=== PATIENT | male | born 1985 | race Caucasian/White ===

== ENCOUNTER 2018-12-02 14:07 | Emergency (ER) | payer SELFPAY ==
[2018-12-02 14:12] VITALS: BP 159/113; PULSE 82; RESP 15; TEMP 37.2; O2SAT 97; BMI 47.2
--- NOTE | 2018-12-02 17:27 | ED.URI ---
HPI - URI/Sore Throat <Elaine Vasquez PA-C - Last Filed: 12/02/18 21:46> General Chief Complaint: Upper Respiratory Symptoms Stated Complaint: Sinus infect./low grade fever/int'l travel Time Seen by Provider: 12/02/18 17:27 Source: patient Mode of arrival: ambulatory Limitations: no limitations History of Present Illness HPI Narrative: This generally healthy 33-year-old comes in due to concern for sinus infection. He traveled around [place] returned home 2 weeks ago. Past prior to returning home, he developed sore throat, sinus and ear congestion with postnasal drip and some cough and fever up to 101. He states that he was given a homeopathic remedy at a pharmacy in [place] which was not helpful. He tried Benadryl and Sudafed here without relief of symptoms. He states that he feels like there is burning in his sinuses, continues to feel hot and cold and states he is having fever intermittently though he has not checked a temperature in the last couple of days. He states he feels like his cough is due to postnasal drip, states he has discolored nasal drainage. he denies chest congestion, chest pain, wheeze or dyspnea. He states he is generally very healthy with no chronic medical conditions, no history of surgeries, never a smoker Related Data Previous Rx's Medication Instructions Recorded amoxicillin-pot clavulanate 1 tab PO Q12H #20 tab 12/02/18 [Augmentin] Allergies Allergy/AdvReac Type Severity Reaction Status Date / Time aspirin Allergy Verified 12/02/18 14:12 ibuprofen Allergy Verified 12/02/18 14:12 Review of Systems <Elaine Vasquez PA-C - Last Filed: 12/02/18 21:46> Review of Systems ROS Unobtainable: All systems reviewed & are unremarkable except as noted in HPI and below PFSH <Elaine Vasquez PA-C - Last Filed: 12/02/18 21:46> Medical History (Updated 12/02/18 @ 21:43 by Elaine Vasquez PA-C) Rhabdomyolysis (Resolved) Social History Smoking Status: Never smoker Social History Smoking Status: Never smoker Exam <Elaine Vasquez PA-C - Last Filed: 12/02/18 21:46> Narrative Exam Narrative: GENERAL APPEARANCE: Patient sitting comfortably, in no distress. HEAD: Localized right maxillary tenderness EYES: PERRL, EOMI. EARS: Normal auditory canals, TMS intact with normal light reflexes. ORAL CAVITY: Normal oropharynx. THROAT: Clear. NECK/THYROID: Neck supple, full range of motion, no cervical lymphadenopathy. LUNGS: Clear to auscultation bilaterally, no cough on exam. HEART: RRR without murmur, nl S1, S2, no S3 or S4. DERMATOLOGIC: No exanthem Initial Vital Signs Initial Vital Signs: Vital Signs Temperature 98.9 F 12/02/18 14:12 Pulse Rate 82 12/02/18 14:12 Respiratory Rate 15 12/02/18 14:12 Blood Pressure 159/113 H 12/02/18 14:12 Pulse Oximetry 97 12/02/18 14:12 <DO Burt Ryan Last Filed: 12/03/18 07:41> Initial Vital Signs Initial Vital Signs: Vital Signs Temperature 98.9 F 12/02/18 14:12 Pulse Rate 82 12/02/18 14:12 Respiratory Rate 15 12/02/18 14:12 Blood Pressure 159/113 H 12/02/18 14:12 Pulse Oximetry 97 12/02/18 14:12 Course <Elaine Vasquez PA-C - Last Filed: 12/02/18 21:46> Additional Information: Advised patient passed majority of sinusitis is viral, however he has had persistent symptoms including fever, parent drainage, and now appears to be starting to have some localizing tenderness on exam. He does not have a primary care provider. Given a prescription for Augmentin to start if symptoms are persisting or worse over the next few days, otherwise he will not start this if improving. He is agreeable Vital Signs - 8 hr 12/02/18 14:12 12/02/18 17:28 Temperature 98.9 F Pulse Rate 82 86 Respiratory Rate 15 17 Blood Pressure 159/113 H Blood Pressure [Left Wrist] 153/104 H Pulse Oximetry 97 99 <DO Burt Ryan Last Filed: 12/03/18 07:41> Vital Signs - 8 hr 12/02/18 14:12 12/02/18 17:28 Temperature 98.9 F Pulse Rate 82 86 Respiratory Rate 15 17 Blood Pressure 159/113 H Blood Pressure [Left Wrist] 153/104 H Pulse Oximetry 97 99 Discharge Plan Departure Patient Disposition: Home Clinical Impression: Acute maxillary sinusitis Qualifiers: Recurrence: non-recurrent Qualified Code(s): J01.00 - Acute maxillary sinusitis, unspecified Discharge Date/Time: 12/02/18 18:08 Interventions: ED Discharge Assessment Last Done: 12/02/18 18:08 Instructions: DI for Sinusitis Activity Restrictions/Additional Instructions: As we talked about, the vast majority of the time, sinus infections are due to viruses and resolve on their own. Since you had a little bit of localized pain today when I examined, and you have had discolored drainage and fever, I have prescribed an antibiotic for you to fill if you have worsening symptoms over the next few days (i.e. If you have worsening pain in your right cheek, persistent fevers and discolored drainage, you should go ahead and start it, otherwise do not take the prescription). You may want to try pseudoephedrine again to help with the congestion and pressure (make sure you get that rather than phenylephprine). Remember that you should be seen as we talked about if you have acutely worsening comes, and you should also set up follow-up with a primary care provider if you are not getting better in the next couple of weeks Prescriptions: New amoxicillin-pot clavulanate [Augmentin] 875-125 mg tablet 1 tab PO Q12H Qty: 20 RF: 0 <Jazmine Prasad DO - Last Filed: 12/03/18 07:41> Cosign ED Attending Sushmaature Attestation: I was immediately available in the department for consultation. This documentation has been reviewed and I agree with assessment and plan. Supervised by Jazmine Prasad DO
[2018-12-02 17:28] VITALS: BP 153/104; PULSE 86; RESP 17; O2SAT 99
== END 2018-12-02 18:08 | disposition home or self-care (01) ==
PROVIDERS: Emergency Provider Internal Medicine
DX: J01.00 Acute maxillary sinusitis, unspecified (principal)
CPT/HCPCS: 99282; 99283

== ENCOUNTER 2023-05-25 13:33 | Emergency (ER) | payer OTHER, SELFPAY ==
[2023-05-25 13:51] VITALS: BP 176/94; PULSE 57; RESP 18; TEMP 37.5; O2SAT 98; BMI 47.2
[2023-05-25 14:23] LABS: Strep Grp A by PCR Rapid Negative (Negative)
--- NOTE | 2023-05-25 15:43 | DI.RAD.S_ITS ---
PROCEDURE: XR CHEST 2V INDICATIONS: SOB TECHNIQUE: 2 views of the chest were acquired. COMPARISON: None. FINDINGS: Surgical changes and devices: None. Lungs and pleura: Lungs are clear. No pleural effusions or pneumothorax. Mediastinum: Mediastinal contours are normal. Heart size is normal. Bones and chest wall: No suspicious bony abnormalities. Soft tissues appear unremarkable. IMPRESSION: No acute pulmonary process. Dictated by: Kadi Smith M.D. on 05/25/2023 at 16:29 Approved by: Kadi Smith M.D. on 05/25/2023 at 16:29
--- NOTE | 2023-05-25 15:46 | PC.NURSE ---
Addendum entered by Ruby Lucas R.N. 05/25/23 15:47: Disregard, wrong chart' Original Note: Called Dr. Booker's office. Dr. Booker will come to see pt @ [id number].
[2023-05-25 16:05] VITALS: BP 174/86; PULSE 57; RESP 16; O2SAT 95
--- NOTE | 2023-05-25 16:13 | ED.URI ---
HPI - URI/Sore Throat <Kim Peterson PA-C - Last Filed: 05/25/23 18:12> General Chief Complaint: Upper Respiratory Symptoms Stated Complaint: pain in throat/SOB/can't cough T-21/heart palp Time Seen by Provider: 05/25/23 15:23 Source: patient Mode of arrival: Ambulatory History of Present Illness HPI Narrative: Patient is a 38-year-old nonsmoker with a history of GERD, diabetes and hypertension who presents with 3 weeks of symptoms. It started with a sore throat but then progressed to a feeling of obstruction in his trachea. He has occasional productive cough. It has persisted and now he feels twinges in his left upper chest, in his heart. This morning he woke up with a severe headache which he attributes to the obstruction in his throat. He does have a history of GERD for which he takes omeprazole daily, reports this controls the symptoms. He snores and has large tonsils but has not had a sleep study or been diagnosed with ROSA and does not use a CPAP. He reports a remote history of asthma for which she has taken albuterol on occasion. He has a family history of cardiac before age 60. He was seen at urgent care in [place] yesterday and they suggested that his symptoms might be related to allergies, suggested a daily antihistamine. He presents here to the emergency department today because he feels something more significant is wrong and is requesting a can of his neck to assess for obstruction. Related Data Allergies Allergy/AdvReac Type Severity Reaction Status Date / Time aspirin Allergy Verified 12/02/18 14:12 ibuprofen Allergy Verified 12/02/18 14:12 Review of Systems <Kim Peterson PA-C - Last Filed: 05/25/23 18:12> Review of Systems ROS Unobtainable: All systems reviewed & are unremarkable except as noted in HPI and below Patient History <Kim Peterson PA-C - Last Filed: 05/25/23 18:12> Medical History Rhabdomyolysis Social History Smoking Status: Never smoker Smoking Status: Never smoker alcohol intake frequency: holidays/special occasions only Substance Use Type: does not use Exam <Kim Peterson PA-C - Last Filed: 05/25/23 18:12> Narrative Exam Narrative: GENERAL: 38 year old patient appears stated age. Well-developed patient, in no distress. NEURO: AOx3. HEAD: Atraumatic. Normocephalic. EYES: Pupils equal round and reactive. Extraocular motions intact. No scleral icterus. No injection or drainage. ENT: Nose without bleeding or purulent drainage. Throat with mild erythema, significant tonsillar hypertroph, no exudate. Airway patent. TMs clear and bulging bilaterally, left more than right. NECK: Trachea midline. Non tender CARDIOVASCULAR: Regular rate and rhythm without murmurs, gallops, or rubs. RESPIRATORY: Clear to auscultation. Breath sounds equal bilaterally. No wheezes, rales, or rhonchi. SKIN: No rash or erythema of visible areas Initial Vital Signs Initial Vital Signs: Vital Signs Temperature 99.5 F 05/25/23 13:51 Pulse Rate 57 L 05/25/23 13:51 Respiratory Rate 18 05/25/23 13:51 Blood Pressure 176/94 H 05/25/23 13:51 Pulse Oximetry 98 05/25/23 13:51 Oxygen Delivery Method Room Air 05/25/23 13:51 <Jason Rebolledo MD - Last Filed: 05/25/23 18:19> Initial Vital Signs Initial Vital Signs: Vital Signs Temperature 99.5 F 05/25/23 13:51 Pulse Rate 57 L 05/25/23 13:51 Respiratory Rate 18 05/25/23 13:51 Blood Pressure 176/94 H 05/25/23 13:51 Pulse Oximetry 98 05/25/23 13:51 Oxygen Delivery Method Room Air 05/25/23 13:51 Course <Kim Peterson PA-C - Last Filed: 05/25/23 18:12> Orders Ordered: ED Orders 05/25/23 14:00 Strep Grp A by PCR Rapid Stat 05/25/23 14:45 Throat Culture Stat 05/25/23 15:42 EKG-12 Lead Stat 05/25/23 15:43 XR chest 2V Stat 05/25/23 15:53 Comprehensive Metabolic Panel Stat Lipase Stat Troponin & CK Cardiac Panel Stat 05/25/23 16:06 COVID19 -Nasal RAPID Stat 05/25/23 16:10 Complete Blood Count AUTO DIFF Stat Vital Signs Vital signs: Vital Signs - 8 hr 05/25/23 13:51 05/25/23 16:05 Temperature 99.5 F Pulse Rate 57 L 57 L Respiratory Rate 18 16 Blood Pressure 176/94 H 174/86 H Pulse Oximetry 98 95 Oxygen Delivery Method Room Air Room Air <Jason Rebolledo MD - Last Filed: 05/25/23 18:19> Orders Ordered: ED Orders 05/25/23 14:00 Strep Grp A by PCR Rapid Stat 05/25/23 14:45 Throat Culture Stat 05/25/23 15:42 EKG-12 Lead Stat 05/25/23 15:43 XR chest 2V Stat 05/25/23 15:53 Comprehensive Metabolic Panel Stat Lipase Stat Troponin & CK Cardiac Panel Stat 05/25/23 16:06 COVID19 -Nasal RAPID Stat 05/25/23 16:10 Complete Blood Count AUTO DIFF Stat Vital Signs Vital signs: Vital Signs - 8 hr 05/25/23 13:51 05/25/23 16:05 Temperature 99.5 F Pulse Rate 57 L 57 L Respiratory Rate 18 16 Blood Pressure 176/94 H 174/86 H Pulse Oximetry 98 95 Oxygen Delivery Method Room Air Room Air MDM - URI/Sore Throat <Kim Peterson PA-C - Last Filed: 05/25/23 18:12> Lab Data 05/25/23 16:10 05/25/23 15:53 Labs: Lab Results 05/25/23 05/25/23 05/25/23 Range/Units 14:00 15:53 16:06 WBC (4.5-11.0) X10^3/uL RBC (4.5-5.9) X10^6/uL Hgb (13.5-17.5) g/dL Hct (41-53) % MCV (80-100) fL MCH (26-34) PG MCHC (30-36) % RDW (11.6-14.8) % Plt Count (150-400) X10^3/uL Neut % (Auto) (50-75) % Lymph % (Auto) (25-40) % [place] % (Auto) (3-14) % Eos % (Auto) (2-4) % Baso % (Auto) (0-2) % Neut # (Auto) (5391-9363) /uL Lymph # (Auto) (6107-3602) /uL [place] # (Auto) (0-900) /uL Eos # (Auto) (0-450) /uL Baso # (Auto) (0-100) /uL Sodium 139 (137-145) mmol/L Potassium 4.4 (3.4-5.1) mmol/L Chloride 103 (98-107) mmol/L Carbon Dioxide 27 (22-32) mmol/L BUN 11 (9-20) mg/dL Creatinine 0.90 (0.66-1.25) mg/dL Estimated GFR > 60 (>60) mL/min BUN/Creatinine Ratio 12.2 (6-22) Glucose 146 H (70-100) mg/dL Calcium 9.6 (8.4-10.2) mg/dL Total Bilirubin 0.8 (0.2-1.3) mg/dL AST 28 (17-59) IU/L ALT 34 (<50) IU/L Alkaline Phosphatase 54 (38-126) U/L Total Creatine Kinase 69 (55-170) U/L Troponin I < 0.012 (0.01-0.034) ng/mL Total Protein 7.9 (6.3-8.2) g/dL Albumin 4.4 (3.5-5.0) g/dL Globulin 3.5 (1.7-4.1) g/dL Albumin/Globulin Ratio 1.3 (1.0-2.8) Lipase 57 (23-300) U/L SARS-CoV-2 (PCR) Negative (Negative) Group A Strep (PCR) Negative (Negative) 05/25/23 Range/Units 16:10 WBC 12.5 H (4.5-11.0) X10^3/uL RBC 4.23 L (4.5-5.9) X10^6/uL Hgb 11.6 L (13.5-17.5) g/dL Hct 35.0 L (41-53) % MCV 82.7 (80-100) fL MCH 27.5 (26-34) PG MCHC 33.2 (30-36) % RDW 14.5 (11.6-14.8) % Plt Count 306 (150-400) X10^3/uL Neut % (Auto) 71.9 (50-75) % Lymph % (Auto) 19.9 L (25-40) % [place] % (Auto) 4.8 (3-14) % Eos % (Auto) 2.5 (2-4) % Baso % (Auto) 0.9 (0-2) % Neut # (Auto) 9000 H (9036-3340) /uL Lymph # (Auto) 2500 (3063-0117) /uL [place] # (Auto) 600 (0-900) /uL Eos # (Auto) 300 (0-450) /uL Baso # (Auto) 100 (0-100) /uL Sodium (137-145) mmol/L Potassium (3.4-5.1) mmol/L Chloride (98-107) mmol/L Carbon Dioxide (22-32) mmol/L BUN (9-20) mg/dL Creatinine (0.66-1.25) mg/dL Estimated GFR (>60) mL/min BUN/Creatinine Ratio (6-22) Glucose (70-100) mg/dL Calcium (8.4-10.2) mg/dL Total Bilirubin (0.2-1.3) mg/dL AST (17-59) IU/L ALT (<50) IU/L Alkaline Phosphatase (38-126) U/L Total Creatine Kinase (55-170) U/L Troponin I (0.01-0.034) ng/mL Total Protein (6.3-8.2) g/dL Albumin (3.5-5.0) g/dL Globulin (1.7-4.1) g/dL Albumin/Globulin Ratio (1.0-2.8) Lipase (23-300) U/L SARS-CoV-2 (PCR) (Negative) Group A Strep (PCR) (Negative) Imaging Data Chest x-ray: Radiologist's Impression: PROCEDURE: XR CHEST 2V INDICATIONS: SOB TECHNIQUE: 2 views of the chest were acquired. COMPARISON: None. FINDINGS: Surgical changes and devices: None. Lungs and pleura: Lungs are clear. No pleural effusions or pneumothorax. Mediastinum: Mediastinal contours are normal. Heart size is normal. Bones and chest wall: No suspicious bony abnormalities. Soft tissues appear unremarkable. IMPRESSION: No acute pulmonary process. Dictated by: Kadi Smith M.D. on 05/25/2023 at 16:29 Approved by: Kadi Smith M.D. on 05/25/2023 at 16:[address] [facility] Narrative Medical decision making narrative: Multiple etiologies for patient's symptoms considered including, but not limited to: Strep pharyngitis, other bacterial pharyngitis, sinusitis, pneumonia, acute otitis media, ACS Patient has a range of symptoms today and is quite concerned about his heart because he has been feeling twinges of pain that radiate from his throat to his heart. His EKG and troponin are reassuring, his labs are overall within normal limits with a leukocytosis of 14,000, likely from a viral infection. His chest x-ray is not concerning for pneumonia. He has no urinary complaints. I reviewed these findings in detail with the patient. He still requests a scan of his neck to evaluate for obstruction; I do not think this is necessary as he has no respiratory distress and is able to swallow food and drink. He denies any foreign body sensation and has not ingested anything that would likely lodged in his throat. He also requests antibiotics, I do not think these are indicated based on the studies we have done today and my physical exam and our discussion. We will repeat the throat culture as the 1st one was lost and we will call him if there is any bacterial growth requires treatment with antibiotics. Patient's symptoms improved over duration of stay with above-stated therapies. Findings and discharge diagnosis discussed with patient/family followed by verbalization of understanding Return precautions discussed with patient/family whom verbalize understanding of diagnosis and plan <Jason Rebolledo MD - Last Filed: 05/25/23 18:19> Lab Data Labs: Lab Results 05/25/23 05/25/23 05/25/23 Range/Units 14:00 15:53 16:06 WBC (4.5-11.0) X10^3/uL RBC (4.5-5.9) X10^6/uL Hgb (13.5-17.5) g/dL Hct (41-53) % MCV (80-100) fL MCH (26-34) PG MCHC (30-36) % RDW (11.6-14.8) % Plt Count (150-400) X10^3/uL Neut % (Auto) (50-75) % Lymph % (Auto) (25-40) % [place] % (Auto) (3-14) % Eos % (Auto) (2-4) % Baso % (Auto) (0-2) % Neut # (Auto) (8447-2387) /uL Lymph # (Auto) (2678-7993) /uL [place] # (Auto) (0-900) /uL Eos # (Auto) (0-450) /uL Baso # (Auto) (0-100) /uL Sodium 139 (137-145) mmol/L Potassium 4.4 (3.4-5.1) mmol/L Chloride 103 (98-107) mmol/L Carbon Dioxide 27 (22-32) mmol/L BUN 11 (9-20) mg/dL Creatinine 0.90 (0.66-1.25) mg/dL Estimated GFR > 60 (>60) mL/min BUN/Creatinine Ratio 12.2 (6-22) Glucose 146 H (70-100) mg/dL Calcium 9.6 (8.4-10.2) mg/dL Total Bilirubin 0.8 (0.2-1.3) mg/dL AST 28 (17-59) IU/L ALT 34 (<50) IU/L Alkaline Phosphatase 54 (38-126) U/L Total Creatine Kinase 69 (55-170) U/L Troponin I < 0.012 (0.01-0.034) ng/mL Total Protein 7.9 (6.3-8.2) g/dL Albumin 4.4 (3.5-5.0) g/dL Globulin 3.5 (1.7-4.1) g/dL Albumin/Globulin Ratio 1.3 (1.0-2.8) Lipase 57 (23-300) U/L SARS-CoV-2 (PCR) Negative (Negative) Group A Strep (PCR) Negative (Negative) 05/25/23 Range/Units 16:10 WBC 12.5 H (4.5-11.0) X10^3/uL RBC 4.23 L (4.5-5.9) X10^6/uL Hgb 11.6 L (13.5-17.5) g/dL Hct 35.0 L (41-53) % MCV 82.7 (80-100) fL MCH 27.5 (26-34) PG MCHC 33.2 (30-36) % RDW 14.5 (11.6-14.8) % Plt Count 306 (150-400) X10^3/uL Neut % (Auto) 71.9 (50-75) % Lymph % (Auto) 19.9 L (25-40) % [place] % (Auto) 4.8 (3-14) % Eos % (Auto) 2.5 (2-4) % Baso % (Auto) 0.9 (0-2) % Neut # (Auto) 9000 H (8286-4305) /uL Lymph # (Auto) 2500 (8727-4246) /uL [place] # (Auto) 600 (0-900) /uL Eos # (Auto) 300 (0-450) /uL Baso # (Auto) 100 (0-100) /uL Sodium (137-145) mmol/L Potassium (3.4-5.1) mmol/L Chloride (98-107) mmol/L Carbon Dioxide (22-32) mmol/L BUN (9-20) mg/dL Creatinine (0.66-1.25) mg/dL Estimated GFR (>60) mL/min BUN/Creatinine Ratio (6-22) Glucose (70-100) mg/dL Calcium (8.4-10.2) mg/dL Total Bilirubin (0.2-1.3) mg/dL AST (17-59) IU/L ALT (<50) IU/L Alkaline Phosphatase (38-126) U/L Total Creatine Kinase (55-170) U/L Troponin I (0.01-0.034) ng/mL Total Protein (6.3-8.2) g/dL Albumin (3.5-5.0) g/dL Globulin (1.7-4.1) g/dL Albumin/Globulin Ratio (1.0-2.8) Lipase (23-300) U/L SARS-CoV-2 (PCR) (Negative) Group A Strep (PCR) (Negative) Discharge Plan Departure Patient Disposition: Home Clinical Impression: Acute viral laryngitis Upper respiratory infection Qualifiers: URI type: unspecified viral URI Qualified Code(s): J06.9 - Acute upper respiratory infection, unspecified Instructions: DI for Viral Upper Respiratory Infection -- Adult, DI for Viral Pharyngitis Activity Restrictions/Additional Instructions: *You have been diagnosed with acute viral upper respiratory infection and pharyngitis. Your labs were normal except for a mildly elevated white blood cell count, which can be seen with either viral or bacterial infection. Your chest x-ray was reassuring and your COVID test was negative. Your rapid strep test was also negative. Your cardiac enzyme test was negative and your EKG was reassuring. I would encourage taking [id number] medications to manage her symptoms, rest and hydration. *What to do: *Please continue to take your regular medications as directed. [ ] New medication prescriptions sent to your pharmacy: [ ] [ ] New medication written as a paper prescription [x] No new medications given *Please follow up with your primary care provider in 2-3 days, call for an appointment. Let them know you were seen in the Emergency Department and that we ask that you be seen in follow up. We will electronically transmit a record of today's note if your PCP is in our system *If you do not have a primary care provider please contact the [facility] Resource line at [phone]. They will ask some questions about your medical history and help get you set up with a doctor in the community. *Return to Emergency Department if you should have any new, worsening or concerning symptoms, such as [fever greater than 101 F, shaking chills, worsening pain, persistent vomiting or other concerning symptoms]. Prescriptions: Discontinued amoxicillin-pot clavulanate [Augmentin] 875-125 mg tablet 1 tab PO Q12H Qty: 20 0RF Referrals: Kade Hobbs MD [Primary Care Provider] - Stand Alone Forms: Patient Portal/API, Work Release Note ED Sign-out <Jason Rebolledo MD - Last Filed: 05/25/23 18:19> Cosign ED Attending Sushmaature Attestation: I was immediately available in the department for consultation. ?This documentation has been reviewed and I agree with assessment and plan. Supervised by Jason Rebolledo MD
[2023-05-25 16:23] LABS: Add Manual Diff / Slide Review NO; Basophils Absolute Auto 100 /uL (0-100); Basophils Percent Auto 0.9 % (0-2); Eosinophils Absolute Auto 300 /uL (0-450); Eosinophils Percent Auto 2.5 % (2-4); Hemoglobin 11.6 g/dL (13.5-17.5); Lymphocytes Absolute Auto 2500 /uL (1100-4500); Lymphocytes Percent Auto 19.9 % (25-40); Mean Corpuscular HGB Conc 33.2 % (30-36); Mean Corpuscular Hemoglobin 27.5 PG (26-34); Mean Corpuscular Volume 82.7 fL (80-100); Monocytes Absolute Auto 600 /uL (0-900); Monocytes Percent Auto 4.8 % (3-14); Neutrophils Absolute Auto 9000 /uL (1500-7000); Neutrophils Percent Auto 71.9 % (50-75); Platelet Count 306 X10^3/uL (150-400); Red Blood Cell Count 4.23 X10^6/uL (4.5-5.9); Red Cell Distribution Width 14.5 % (11.6-14.8); White Blood Cell Count 12.5 X10^3/uL (4.5-11.0)
[2023-05-25 16:37] LABS: Alanine Aminotransferase 34 IU/L (<50); Albumin 4.4 g/dL (3.5-5.0); Albumin Globulin Ratio 1.3 (1.0-2.8); Alkaline Phosphatase 54 U/L (38-126); Aspartate Aminotransferase 28 IU/L (17-59); BUN Creatinine Ratio 12.2 (6-22); Bilirubin Total 0.8 mg/dL (0.2-1.3); Blood Urea Nitrogen 11 mg/dL (9-20); Calcium 9.6 mg/dL (8.4-10.2); Carbon Dioxide 27 mmol/L (22-32); Chloride 103 mmol/L (98-107); Creatine Kinase 69 U/L (55-170); Estimated Glomerular Filt Rate > 60 mL/min (>60); Globulin 3.5 g/dL (1.7-4.1); Glucose 146 mg/dL (70-100); HEMOLYSIS 40 (0-50); Lipase 57 U/L (23-300); Potassium 4.4 mmol/L (3.4-5.1); Sodium 139 mmol/L (137-145); Total Protein 7.9 g/dL (6.3-8.2)
[2023-05-25 16:39] LABS: COVID19 -Nasal RAPID Negative (Negative)
[2023-05-25 16:49] LABS: Troponin I < 0.012 ng/mL (0.01-0.034)
[2023-05-25 18:18] VITALS: BP 176/74; PULSE 56; RESP 24; O2SAT 97
== END 2023-05-25 18:19 | disposition home or self-care (01) ==
PROVIDERS: Emergency Medicine; Emergency Provider Physician Assistant; PCP Emergency Medicine Emergency Medical Services
DX: J06.9 Acute upper respiratory infection, unspecified (principal); J02.9 Acute pharyngitis, unspecified; Z20.822 Contact with and (suspected) exposure to COVID-19
CPT/HCPCS: 36415; 71046; 80053; 82550; 83690; 84484; 85025; 87070; 87635; 87651; 93005; 99284; C9803